=== PATIENT | male | born 1985 | race African-American/Black ===

== ENCOUNTER 2019-12-31 00:32 | Emergency (ER) | payer MEDICAID ==
[~2019-12-31] VITALS: Ht 182.9 cm; Wt 102.0 kg
[2019-12-31 00:42] VITALS: BP 149/75
[2019-12-31] MEDS ORDERED: ACETAMINOPHEN 325MG TABLET PO ONE (02:00)
== END 2019-12-31 02:35 | disposition home or self-care (01) ==
LOC: ER 00:32
DX: K02.9 Dental caries, unspecified (principal); Z88.6 Allergy status to analgesic agent; Z91.040 Latex allergy status
CPT/HCPCS: 99282; 99283